=== PATIENT | female | born 1965 | race Caucasian/White ===

== ENCOUNTER 2016-11-01 20:53 | Emergency (ER) | payer MEDICARE, OTHER ==
--- NOTE | ~2016-11-01 | CR72 ---
[facility] A Service of [facility] / [facility] RADIOLOGY TEXT RESULTS PATIENT: BARB HOLLIS LOCATION: [facility] : 63 UNIT #: [id number] AGE: [address]: Natalee Price MD SEX: F ORDER DR: [id number] [facility] [address] [place], [place] [address] [id number] E MR#: [id number] Acc #: [id number] NAME: BARB HOLLIS : 1965 SEX: F STUDY DATE/TIME: 11/01/2016 19:36 UNIT: [facility] ROOM: STUDY DESCRIPTION: CR Chest Single View Portable Attending Physician: Natalee Price M.D. Ordering Physician: Ed Joshua Finch M.D. Primary Care Physician: Slime Merchant M.D. MEDICAL IMAGING REPORT This report is preliminary unless electronic signature is present EXAM Chest x-ray single view portable HISTORY Chest pain radiates to right arm. Short of air. Cough. History of HI symptoms, started today. COMMENT Single frontal portable view of the chest timed 1936, 11/01/2016 reviewed. COMPARISON No prior. FINDINGS No acute appearing parenchymal infiltrate. No acute congestive failure, pleural effusion or pneumothorax. Heart size is normal. There is a nodular density left midline up to about 8 mm in diameter. It is nonspecific and could be calcified or not calcified. Most helpful would be comparison to outside films. If there are no outside films, nonemergent chest CT follow up recommended. IMPRESSION 1. No active disease is seen in the chest. 2. There is a nodular density at the left mid lung. It is about 8 mm largest dimension and I cannot tell if it is calcified or noncalcified. Most helpful would be comparison to outside films. If there are no outside films or if the lesion is new, I would recommend correlation with a nonemergent CT of the chest. Dictated by... [facility] A Service of [facility] RADIOLOGY TEXT RESULTS PATIENT: BARB HOLLIS LOCATION: [facility] : 63 UNIT #: [id number] AGE: [address]: Natalee Price MD SEX: F ORDER DR: Michelle Olivier M.D. THIS IS AN ELECTRONICALLY VERIFIED REPORT Michelle Olivier M.D. at 11/01/2016 10:56 PM SAC/to TD: 11/01/2016 22:07 JOB #: [id number] MEDICAL IMAGING REPORT Page 1 of 1 COPY
--- NOTE | ~2016-11-01 | EKG ---
PATIENT: BARB HOLLIS UNIT #: [id number] Ventricular Rate: 116 BPM Atrial Rate: 116 BPM P-R Interval: 142 ms QRS Duration: 90 ms Q-T Interval: 344 ms QTC Calculation(Bezet): 478 ms P [place]: 67 degrees Calculated R [place]: 70 degrees Calculated T [place]: 78 degrees Diagnosis Line: Sinus tachycardia Diagnosis Line: Otherwise normal ECG Diagnosis Line: No previous ECGs available Diagnosis Line: Confirmed by STEFAN BERUMEN MD ([id number]) on 11/01/2016 Diagnosis Line: 10:50:11 PM INTERPRETING MD: ATA ACUNA
[2016-11-01 19:53] LABS: BASOPHIL# 0.1 X10e3 (0-0.3); BASOPHIL% 0.5 % (0-2.5); EOSINOPHIL# 0.4 X10e3 (0-0.7); EOSINOPHIL% 4.2 % (0.0-7.0); HEMATOCRIT 39.3 % (35.0-45.0); HEMOGLOBIN 12.8 gm/dL (12.0-16.0); LYMPHOCYTE# 4.2 X10e3 (1.0-3.5); LYMPHOCYTE% 40.7 % (17.0-45.0); MEAN CELL VOLUME 84.1 FL (83-96); MEAN CORPUSCULAR HEMOGLOBIN 27.4 PG (28-34); MEAN CORPUSCULAR HGB CONC 32.6 g/dL (30-36); MEAN PLATELET VOLUME 7.7 FL (6.5-11.5); MONOCYTE# 0.5 X10e3 (0-1.0); NEUTROPHIL# 5.1 X10e3 (1.5-7.1); NEUTROPHIL% 49.6 % (40-75); PLATELET COUNT 268 X10e3 (140-420); RED BLOOD COUNT 4.68 X10e (3.90-5.30); RED CELL DISTRIBUTION WIDTH 14.8 % (11.0-15.5); WHITE BLOOD COUNT 10.4 X10e3 (4.0-10.5)
[2016-11-01 19:58] LABS: DIFF IND NO
[2016-11-01 20:17] LABS: ALBUMIN SERUM 4.2 g/dL (3.5-5.0); BILIRUBIN, DIRECT 0.1 mg/dL (0.0-0.2); BILIRUBIN,INDIRECT 0.7 mg/dL (0.0-0.9); BILIRUBIN,TOTAL 0.8 mg/dL (0.2-2.0); CALCIUM SERUM 9.9 mg/dL (8.4-10.2); CREATININE SERUM 0.9 mg/dL (0.6-1.4); GLOM FILT RATE Estimated 73.6 mL/min (>60); POTASSIUM 3.3 mmol/L (3.5-5.1); PROTEIN TOTAL SERUM 7.4 g/dL (6.0-8.3)
[2016-11-01 20:22] LABS: POC - CKMB 7.3 ng/mL (0.0-7.9); POC - TROPONIN <0.05 ng/mL (<=0.05)
[~2016-11-01 20:53] MED LIST: ALPRAZOLAM0.25 MG PO; ASPIRIN81 MG PO; CETIRIZINE HCL5 M1 PO; CRESTOR5 MG PO; FENOFIBRATE40 MG PO; GLUCOPHAGE500 M1 PO; HYDROCODON-ACE1 EA12 PO; LISINOPRIL5 MG PO; METOPROLOL TAR25 MG PO; MIRALAX17 GM PO; OMEPRAZOLE10 M1 PO; OMEPRAZOLE40 M1; OTEZLA1 EAC1 PO; PRISTIQ50 MG PO; SENOKOT S1 TA1 PO
== END 2016-11-01 22:13 | disposition home or self-care (01) ==
LOC: CED 20:53
PROVIDERS: Emergency Medicine
DX: R07.89 Other chest pain (principal); I10 Essential (primary) hypertension; E78.5 Hyperlipidemia, unspecified; Z95.5 Presence of coronary angioplasty implant and graft; Z79.82 Long term (current) use of aspirin; Z79.899 Other long term (current) drug therapy; Z88.2 Allergy status to sulfonamides; Z88.1 Allergy status to other antibiotic agents
CPT/HCPCS: 36415; 71010; 80048; 80076; 82553; 84484; 85025; 85379; 93005; 96374; 99284; J1885

== ENCOUNTER 2016-11-02 18:51 | Emergency (ER) | payer MEDICARE, OTHER ==
--- NOTE | ~2016-11-02 | CT16 ---
[facility] A Service of [facility] RADIOLOGY TEXT RESULTS PATIENT: BARB HOLLIS LOCATION: [facility] : 63 UNIT #: [id number] AGE: [address]: Robert Longoria MD SEX: F ORDER DR: [id number] [facility] [address] [place], [place] [address] [id number] E MR#: [id number] Acc #: [id number] NAME: BARB HOLLIS : 1965 SEX: F STUDY DATE/TIME: 11/02/2016 20:25 UNIT: [facility] ROOM: STUDY DESCRIPTION: CT Angio Chest for PE Attending Physician: Robert Longoria M.D. Ordering Physician: Robert Longoria M.D. Primary Care Physician: Slime Merchant M.D. MEDICAL IMAGING REPORT This report is preliminary unless electronic signature is present EXAM Chest CT with contrast with CT angiography HISTORY Shortness of breath, onset today, with an elevated D-dimer. TECHNIQUE Axial images were obtained with contrast. 8 cc of Isovue was used. CT angiography was performed with thick sliding MIPs in the sagittal and coronal projections. This CT exam was performed with one or more of the following radiation dose reduction techniques: automatic exposure control, adjustment of mA and/or kV according to patient size, and iterative reconstruction. FINDINGS Chest images at mediastinal window show no pulmonary artery filling defects to suggest emboli. There are no enlarged mediastinal or hilar lymph nodes. There is coronary artery calcification in the proximal LAD that is fairly extensive. Lung window imaging shows no focal infiltrates. Emphysematous changes are noted. There is a nodule in the left lower lobe with central calcification consistent with a granuloma. It is unchanged from previous CT back in February of 2016. IMPRESSION No evidence of pulmonary embolism. Emphysema. No active disease in the chest. Fairly extensive coronary artery calcification noted in the proximal LAD. [facility] A Service of [facility] RADIOLOGY TEXT RESULTS PATIENT: BARB HOLLIS LOCATION: [facility] : 63 UNIT #: [id number] AGE: [address]: Robert Longoria MD SEX: F ORDER DR: Dictated by... Ian Calixto M.D. THIS IS AN ELECTRONICALLY VERIFIED REPORT Ian Calixto M.D. at 11/02/2016 10:22 PM RLF/mariangel TD: 11/02/2016 21:10 JOB #: [id number] MEDICAL IMAGING REPORT Page 1 of 1 COPY
--- NOTE | ~2016-11-02 | EKG ---
PATIENT: BARB HOLLIS UNIT #: [id number] Ventricular Rate: 92 BPM Atrial Rate: 92 BPM P-R Interval: 154 ms QRS Duration: 84 ms Q-T Interval: 364 ms QTC Calculation(Bezet): 450 ms P [place]: 53 degrees Calculated R [place]: 56 degrees Calculated T [place]: 23 degrees Diagnosis Line: Normal sinus rhythm Diagnosis Line: Nonspecific T wave abnormality Diagnosis Line: Abnormal ECG Diagnosis Line: When compared with ECG of 01-NOV-2016 18:53, Diagnosis Line: Nonspecific T wave abnormality now evident in Diagnosis Line: Inferior leads Diagnosis Line: Nonspecific T wave abnormality, worse in Lateral Diagnosis Line: leads Diagnosis Line: Confirmed by ART MICHELE MD ([id number]) on Diagnosis Line: 11/03/2016 11:11:25 PM INTERPRETING MD: PAUL
--- NOTE | ~2016-11-02 | CR72 ---
[facility] A Service of [facility] RADIOLOGY TEXT RESULTS PATIENT: BARB HOLLIS LOCATION: [facility] : 63 UNIT #: [id number] AGE: [address]: Robert Longoria MD SEX: F ORDER DR: [id number] [facility] [address] [place], [place] [address] [id number] E MR#: [id number] Acc #: [id number] NAME: BARB HOLLIS : 1965 SEX: F STUDY DATE/TIME: 11/02/2016 18:23 UNIT: [facility] ROOM: STUDY DESCRIPTION: CR Chest Single View Portable Attending Physician: Robert Longoria M.D. Ordering Physician: Robert Longoria M.D. Primary Care Physician: Slime Merchant M.D. MEDICAL IMAGING REPORT This report is preliminary unless electronic signature is present EXAM Portable chest. HISTORY Chest pain for the past 4 days. TECHNIQUE Single view of the chest was obtained and compared with 11/01/2016. FINDINGS A single AP portable view of the chest shows both lungs to be clear. The heart is normal in size. The mediastinal contour is normal. No significant bone abnormalities are seen. IMPRESSION Normal single view chest. Dictated by... Ian Calixto M.D. THIS IS AN ELECTRONICALLY VERIFIED REPORT Ian Calixto M.D. at 11/02/2016 10:20 PM ANGEL/ozzy TD: 11/02/2016 19:06 JOB #: [id number] MEDICAL IMAGING REPORT Page 1 of 1 COPY
[2016-11-02 18:26] LABS: BASOPHIL% 0.4 % (0-2.5); EOSINOPHIL# 0.6 X10e3 (0-0.7); EOSINOPHIL% 5.1 % (0.0-7.0); HEMATOCRIT 39.6 % (35.0-45.0); HEMOGLOBIN 12.9 gm/dL (12.0-16.0); LYMPHOCYTE# 4.6 X10e3 (1.0-3.5); LYMPHOCYTE% 40.5 % (17.0-45.0); MEAN CELL VOLUME 85.7 FL (83-96); MEAN CORPUSCULAR HEMOGLOBIN 27.9 PG (28-34); MEAN CORPUSCULAR HGB CONC 32.6 g/dL (30-36); MEAN PLATELET VOLUME 8.1 FL (6.5-11.5); MONOCYTE# 0.4 X10e3 (0-1.0); MONOCYTE% 3.9 % (3.0-12.0); NEUTROPHIL# 5.7 X10e3 (1.5-7.1); NEUTROPHIL% 50.1 % (40-75); PLATELET COUNT 279 X10e3 (140-420); RED BLOOD COUNT 4.62 X10e (3.90-5.30); RED CELL DISTRIBUTION WIDTH 14.7 % (11.0-15.5); WHITE BLOOD COUNT 11.3 X10e3 (4.0-10.5)
[2016-11-02 18:27] LABS: DIFF IND NO
[2016-11-02 18:43] LABS: INR 0.9; PARTIAL THROMBOPLASTIN TIME 24.7 SECONDS (23.5-31.3); PROTHROMBIN TIME (PATIENT) 9.7 SECONDS (9.6-11.5)
[2016-11-02 18:46] LABS: ALBUMIN SERUM 4.1 g/dL (3.5-5.0); ALKALINE PHOSPHATASE 79 U/L (32-92); ALT (SGPT) 32 U/L (10-40); AST (SGOT) 28 U/L (10-42); BILIRUBIN,TOTAL 0.3 mg/dL (0.2-2.0); BLOOD UREA NITROGEN 23 mg/dL (9-23); CALCIUM SERUM 9.5 mg/dL (8.4-10.2); CARBON DIOXIDE 23 mmol/L (22-31); CHLORIDE 107 mmol/L (100-111); CREATININE SERUM 1.1 mg/dL (0.6-1.4); GLOM FILT RATE Estimated 57.7 mL/min (>60); GLUCOSE FASTING 135 mg/dL (70-110); POTASSIUM 3.8 mmol/L (3.5-5.1); PROTEIN TOTAL SERUM 7.4 g/dL (6.0-8.3); SODIUM 138 mmol/L (135-145)
[2016-11-02 18:47] LABS: BILIRUBIN, DIRECT <0.1 mg/dL (0.0-0.2); BILIRUBIN,INDIRECT 0.2 mg/dL (0.0-0.9)
[2016-11-02 18:55] LABS: POC - CKMB 7.2 ng/mL (0.0-7.9); POC - TROPONIN <0.05 ng/mL (<=0.05)
[2016-11-02 20:47] LABS: POC - CKMB 4.4 ng/mL (0.0-7.9); POC - TROPONIN <0.05 ng/mL (<=0.05)
== END 2016-11-02 21:15 | disposition home or self-care (01) ==
LOC: CED 18:51
PROVIDERS: Emergency Medicine
DX: R09.1 Pleurisy (principal); I25.2 Old myocardial infarction; F17.200 Nicotine dependence, unspecified, uncomplicated; Z86.718 Personal history of other venous thrombosis and embolism; Z98.51 Tubal ligation status; Z95.5 Presence of coronary angioplasty implant and graft
CPT/HCPCS: 36415; 71010; 71275; 80048; 80076; 82553; 84484; 85025; 85379; 85610; 85730; 87040; 93005; 96361; 96374; 96375; 99284; J1170; J2270; J2405; Q9967